=== PATIENT | female | born 1995 | race Caucasian/White ===

== ENCOUNTER 2018-01-28 16:09 | Emergency (ER) | payer MEDICAID ==
[~2018-01-28] VITALS: Ht 162.6 cm; Wt 74.0 kg
[2018-01-28] MEDS ORDERED: ondansetron/PF 4mg/2ml inj IV ONE (16:35)
[2018-01-28] MEDS ORDERED: pyridoxine 50mg tablet PO ONE (16:35)
[2018-01-28] MEDS ORDERED: diphenhydrAMINE 50 mg/ml inj IV ONE (16:35)
[2018-01-28] MEDS ORDERED: normal saline 1000ML IV soln IVB ONE (16:35)
[2018-01-28] MEDS ORDERED: ondansetron 4mg rapidly disintigrating tab PO ONE (18:05)
[2018-01-28 18:53] LABS: ALANINE AMINOTRANSFERASE 38 U/L (12-78); ALBUMIN 3.7 G/DL (3.4-5.0); ALBUMIN/GLOBULIN RATIO 0.9 (1.1-1.5); ALKALINE PHOSPHATASE 75 IU/L (46-116); ANION GAP 13 (8-16); ASPARTATE AMINO TRANSFERASE 17 U/L (10-37); BILIRUBIN,TOTAL 0.6 MG/DL (0.1-1.0); BLOOD UREA NITROGEN 10 MG/DL (7-18); BUN/CREATININE RATIO 15.4 (6.6-38.0); CALCIUM 9.1 MG/DL (8.5-10.1); CHLORIDE 104 MMOL/L (99-107); CREATININE 0.65 MG/DL (0.40-0.90); GLUCOSE 75 MG/DL (70-104); POTASSIUM 5.2 MMOL/L (3.5-5.1); SODIUM 136 MMOL/L (135-145); TOTAL PROTEIN 7.8 G/DL (6.4-8.2); eGFR > 90 ML/MIN
[2018-01-28 19:01] LABS: BASOPHILS % (AUTO) 0.2 % (0-1); EOSINOPHILS # (AUTO) 0.1 X10'3 (0-0.9); HEMOGLOBIN 14.7 g/dl (12.0-16.0); LYMPHOCYTES # (AUTO) 1.9 X10'3 (1.1-4.8); LYMPHOCYTES % (AUTO) 15.8 % (21-51); MEAN CORPUSCULAR HEMOGLOBIN 30.3 PG (27.0-31.0); MEAN CORPUSCULAR VOLUME 86.8 FL (78-98); MEAN PLATELET VOLUME 10.8 FL (7.4-10.4); MONOCYTES # (AUTO) 0.7 X10'3 (0-0.9); NEUTROPHILS # (AUTO) 9.3 X10'3 (1.8-7.7); PLATELET COUNT 214 X10'3 (140-440); RED BLOOD COUNT 4.85 X10'6 (4.20-5.60); RED CELL DISTRIBUTION WIDTH 12.5 % (11.5-14.5); WHITE BLOOD COUNT 12.1 X10'3 (4.5-11.0)
[2018-01-28] MEDS ORDERED: normal saline 1000ml 1,000 ML IV ONE (19:45)
[2018-01-28 20:00] LABS: BETA HCG,QUANTITATIVE 253945 mIU/ml
[2018-01-28] MEDS ORDERED: ONDA4TAB6 PO (20:46)
[2018-01-28] MEDS ORDERED: DOXY1TAB3 PO (20:46)
[2018-01-28 21:33] VITALS: BP 115/48
== END 2018-01-28 21:36 | disposition home or self-care (01) ==
LOC: ER 16:10
DX: O21.0 Mild hyperemesis gravidarum (principal); O26.891 Other specified pregnancy related conditions, first trimester; E86.0 Dehydration; Z3A.08 8 weeks gestation of pregnancy; Z79.899 Other long term (current) drug therapy
CPT/HCPCS: 36415; 80053; 84702; 85025; 96361; 96374; 99284; J1200; J7030; J2405